=== PATIENT | male | born 1995 | race Two or more races ===

== ENCOUNTER → 2018-11-01 | Outpatient (REF) | payer OTHER, SELFPAY | LOC: EEVIPCON 16:54 → M LAB REF 16:54 | PROVIDERS: ATTEND Nurse Practitioner Family | DX: L60.0 Ingrowing nail (principal); L08.9 Local infection of the skin and subcutaneous tissue, unspecified ==

== ENCOUNTER → 2020-03-24 | Outpatient (CLI) | payer SELFPAY | LOC: M LABSMTC 12:11 | PROVIDERS: ATTEND Pediatrics | DX: Z20.822 Contact with and (suspected) exposure to COVID-19 (principal); Z53.9 Procedure and treatment not carried out, unspecified reason ==